=== PATIENT | female | born 1960 | race Caucasian/White ===

== ENCOUNTER 2017-03-15 14:14 | Emergency (ER) | payer OTHER ==
[~2017-03-15 14:14] MED LIST: ALPR.5 PO; ASPI81TA81; COZA50TA PO; CYMB60CA PO; METO25TA3 PO; OXYC1TAB36 PO; POTA-163 PO
[2017-03-15 14:22] VITALS: BP 170/98; PULSE 90; RESP 15; TEMP 98.3; O2SAT 98
[2017-03-15] MEDS ORDERED: IBUP800T23 PO (17:43)
[2017-03-15] MEDS ORDERED: ROBA500T PO (17:43)
[2017-03-15] MEDS ORDERED: ORPHENADRINE INJ 60 MG/2 ML AMP IM ONE (17:45)
[2017-03-15] MEDS ORDERED: KETOROLAC TROMETHAMINE 60 MG/2 ML (IM) VIAL IM ONE (17:45)
--- NOTE | 2017-03-15 17:45 | PD ---
HPI Chief Complaint: Pain: Acute or Chronic Time Seen by Provider: 17:42 Travel History International Travel<30 days: No Contact w/Intl Traveler<30days: No Traveled to known affect area: No History of Present Illness HPI 56-year-old female, with history of chronic low back pain, presents to the emergency Department with complaint of low back pain after falling backwards onto her back 4-5 days ago. He speech management for her chronic low back pain and is requesting refill on morphine 30 mg 3 times a day; she says she's been out for 2 days and missed her PCP appointment the other day. Denies hitting her head or loss of consciousness. Denies encopresis, incontinence, saddle anesthesias. Denies paresthesias, loss of sensation, decreased range of motion , decreasing to bilateral lower extremities. Denies fever, vomiting, abdominal pain, dysuria. Denies IV drug use or cancer. No known allergies. Has not taken any medications or tried any treatments to relieve her symptoms. Pain is aggravated with movement. Pain is relieved with her morphine. No known allergies. Has an established primary care provider. No other modifying factors or associated signs and symptoms. PFSH Past Medical History Arthritis: Yes Autoimmune Disease: No Anxiety: Yes Depression: Yes Heart Rhythm Problems: No Cancer: No Cardiovascular Problems: Yes (HTN) High Cholesterol: Yes Chemotherapy: Yes Chest Pain: No Congestive Heart Failure: No COPD: Yes Diabetes: No Diminished Hearing: No Endocrine: No Gastrointestinal Disorders: Yes GERD: No Glaucoma: No Genitourinary: No Hepatitis: No Hiatal Hernia: No Hypertension: Yes Immune Disorder: No Implanted Vascular Access Dvce: No Kidney Stones: No Musculoskeletal: Yes (CHRONIC NECK, BACK, KNEE PAIN ) Neurologic: Yes Psychiatric: Yes Reproductive: No Respiratory: Yes Immunizations Current: Yes Radiation Therapy: No Renal Failure: No Sickle Cell Disease: No Thyroid Disease: No Ulcer: No Menopausal: Yes Past Surgical History Abdominal Surgery: No AICD: No Arteriovenous Shunt: No Body Medical Devices: screws and plates Cardiac Surgery: No Ear Surgery: No Endocrine Surgery: No Eye Surgery: No Genitourinary Surgery: No Gynecologic Surgery: No Insulin Pump: No Joint Replacement: No Neurologic Surgery: No Oral Surgery: No Pacemaker: No Thoracic Surgery: No Other Surgery: Yes (LEFT HUMERUS SURGERY) Social History Alcohol Use: No Tobacco Use: Yes (e cig) Substance Use: No Allergies-Medications (Allergen,Severity, Reaction): Coded Allergies: No Known Allergies (Verified , 08/19/16) Reported Meds & Prescriptions Reported Meds & Active Scripts Active Ibuprofen 800 Mg Tab 800 Mg PO Q8H PRN Robaxin (Methocarbamol) 500 Mg Tab 500 Mg PO QID PRN Reported Potassium Chloride ER (Potassium Chloride) 20 Meq Tab 20 Meq PO BID Oxycodone-Acetaminophen 10-325 mg Tab 1 Tab PO Q6H PRN Metoprolol Tartrate 25 Mg Tab 25 Mg PO BID Cozaar (Losartan Potassium) 50 Mg Tab 50 Mg PO DAILY Cymbalta DR (Duloxetine HCl) 60 Mg Capdr 60 Mg PO BID Aspir-81 (Aspirin) 81 Mg Tabdr Xanax (Alprazolam) 0.5 Mg Tab 0.5 Mg PO BID PRN Review of Systems Except as stated in HPI: all other systems reviewed are Neg Physical Exam Narrative GENERAL: Well-nourished, well-developed female patient, in no acute distress; afebrile, nontoxic-appearing SKIN: Warm and dry. HEAD: Atraumatic. Normocephalic. EYES: Pupils equal and round. No scleral icterus. No injection or drainage. ENT: Mucosa pink and moist. Airway patent. NECK: Trachea midline. CARDIOVASCULAR: Regular rate. RESPIRATORY: No accessory muscle use. GASTROINTESTINAL: Abdomen soft, non-tender, nondistended. Positive bowel sounds. No hepato-splenomegaly, or palpable masses. No guarding. MUSCULOSKELETAL: Bilateral lower extremities supple and non-tense with 2+ pedal pulses and sensory intact; with full range of motion and 5/5 strength. 2 + DTRs bilaterally. Active dorsiflexion and extension of bilateral feet. Bilateral straight leg raise is negative for low back pain. Ambulatory in room with normal gait. Sitting up in bed at 90. No obvious deformities. No clubbing. No cyanosis. No edema. BACK: No midline point tenderness on palpation of the lumbar or thoracic spine. Tenderness on palpation of bilateral lumbar iliosacral area and bilateral musculature of the thoracic area. No obvious deformities. NEUROLOGICAL: Awake and alert. Oriented 3. No obvious cranial nerve deficits. Motor grossly within normal limits. Normal speech. Moves all extremities. 5/5 strength to all extremities. Sensory intact. PSYCHIATRIC: Appropriate mood and affect; insight and judgment normal. Data Data Last Documented VS Vital Signs Date Time Temp Pulse Resp B/P Pulse Ox O2 Delivery O2 Flow Rate FiO2 03/15/17 14:22 98.3 90 15 170/98 98 Orders Ketorolac Inj (Toradol Inj) (03/15/17 17:45) Orphenadrine Inj (Norflex Inj) (03/15/17 17:45) MDM Medical Decision Making Medical Screen Exam Complete: Yes Emergency Medical Condition: Yes Medical Record Reviewed: Yes Differential Diagnosis Acute exacerbation of chronic low back pain, low back strain, narcotic seeking Narrative Course 56-year-old female with acute exacerbation of chronic low back pain after a fall 4-5 days ago and requesting refill on morphine 30 mg 3 times a day for her chronic back pain. Denies encopresis, incontinence, saddle anesthesias. Denies any drug use or cancer. Patient is afebrile and nontoxic-appearing. She is ambulatory in the room with a normal gait. No midline point tenderness on palpation of the thoracic or lumbar spine. Toradol and Norflex administered in the ER. Ibuprofen and Robaxin prescribed for home. Instructed patient to follow up with primary care provider. Patient verbalizes understanding and agreement with treatment plan. Patient is medically cleared and stable for discharge. Discussed reasons to return to the emergency department. Patient agrees with treatment plan. The patients vital signs are stable and the patient is stable for outpatient follow-up and treatment. Patient discharged home, stable and in no acute distress. Diagnosis Primary Impression: Acute exacerbation of chronic low back pain Referrals: Pain Management Primary Care Physician Patient Instructions: Acute Low Back Pain (ED), Back Pain (ED), Chronic Back Pain (ED), General Instructions Additional Instructions: Tylenol or ibuprofen as directed and as needed for pain Robaxin as prescribed and as needed for muscle spasms Heating pad and/or ice to affected area to reduce pain Avoid aggravating activities; increase activity as tolerated Follow-up with primary care provider Follow-up with pain management Return to emergency department immediately with worsening of symptoms Med/Other Pt SpecificInfo: Prescription(s) given Scripts Ibuprofen 800 Mg [id number] Mg PO Q8H PRN (PAIN SCALE 1 TO 10) #20 TAB Ref 0 Prov:Nguyen Nova 03/15/17 Methocarbamol (Robaxin)500 Mg [id number] Mg PO QID PRN (MUSCLE SPASM) #30 TAB Ref 0 Prov:Nguyen Nova 03/15/17 Disposition: 01 DISCHARGE HOME Condition: Stable Nguyen Nova Mar 15, 2017 17:45
== END 2017-03-15 19:03 | disposition home or self-care (01) ==
LOC: NEPD 14:14
DX: M54.5 Low back pain (principal); G89.29 Other chronic pain; I10 Essential (primary) hypertension; J44.9 Chronic obstructive pulmonary disease, unspecified; E78.00 Pure hypercholesterolemia, unspecified; F41.9 Anxiety disorder, unspecified; F32.9 Major depressive disorder, single episode, unspecified; F17.290 Nicotine dependence, other tobacco product, uncomplicated; Z79.899 Other long term (current) drug therapy
CPT/HCPCS: 96372; 99284; J1885; J2360